=== PATIENT | male | born 1970 | race Hispanic/Latino ===

== ENCOUNTER 2018-03-20 05:50 | Emergency (ER) | payer BC, OTHER ==
[2018-03-20] MEDS ORDERED: KETOROLAC 30 MG/ML INJ ONE (06:20)
[2018-03-20] MEDS ORDERED: DIAZEPAM 10 MG/2 ML INJ SYRINGE ONE (06:21)
--- NOTE | 2018-03-20 08:30 | RAD REPORT ---
EXAM DESCRIPTION: CT - C Spine Wo Con - 03/20/2018 6:46 am CLINICAL HISTORY: fall, neck pain Trauma, neck injury. COMPARISON: No comparisons FINDINGS: The cervical vertebral body heights and disc spaces are maintained. No evidence of acute cervical spine fracture or subluxation. Prevertebral soft tissues are normal in thickness. IMPRESSION: Negative for acute cervical spine abnormality.
--- NOTE | 2018-03-20 08:33 | RAD REPORT ---
EXAM DESCRIPTION: CT - Thorax Wo Con CLINICAL HISTORY: Chest pain fall, thoracic pain COMPARISON: C Spine Wo Con dated 03/20/2018 FINDINGS: The lungs are clear. No pleural thickening or pleural effusion. No pneumothorax. No axillary, mediastinal or hilar adenopathy. No acute fractures demonstrated. No gross upper abdominal finding. All CT scans are performed using dose optimization technique as appropriate and may include automated exposure control or mA/KV adjustment according to patient size. IMPRESSION: No acute intrathoracic process identified.
--- NOTE | 2018-03-20 08:49 | RAD REPORT ---
EXAM DESCRIPTION: RAD - Shoulder Right 2 View - 03/20/2018 7:01 am CLINICAL HISTORY: shoulder pain History of fall and trauma COMPARISON: No comparisons FINDINGS: AC joint and glenohumeral joint arthritic changes. No fracture or dislocation suspected.
[2018-03-20] MEDS ORDERED: DEXAMETHASONE 10 MG/ML VIAL ONE (08:50)
--- NOTE | 2018-03-20 08:50 | RAD REPORT ---
EXAM DESCRIPTION: RAD - Shoulder Left 2 View - 03/20/2018 7:12 am CLINICAL HISTORY: PAIN Fall, trauma. COMPARISON: No comparisons FINDINGS: Mild AC joint and glenohumeral joint arthritic changes. No acute fracture or dislocation s een.
[2018-03-20] MEDS ORDERED: ONDANSETRON 4 MG/2 ML VIAL ONE (08:51)
[2018-03-20] MEDS ORDERED: MORPHINE 4 MG/ML SYR ONE (08:51)
--- NOTE | 2018-03-20 09:05 | EDPHYS ---
Physician Documentation [facility] Name: Sal Mendez Age: 47 yrs Sex: Male : 1970 Arrival Date: 03/20/2018 Time: 05:54 Bed 6 Private MD: ED Physician Antelmo Parry HPI: 03/20 06:17 This 47 yrs old Male presents to ER via Wheelchair with complaints of Shoulder jmm Pain. 06:17 Details of fall: The patient fell from seated position, out of a chair. Onset: The jmm symptoms/episode began/occurred acutely, last night. Associated injuries: The patient sustained neck injury, upper back injury. Patient complains of pain to his neck, shoulders, and back after a fall from a chair which occurred last night. The patient states having ongoing bilateral shoulder pain for 7 month. Patient states he fell backwards in a chair last evening. . Historical: - Allergies: 06:07 No Known Allergies; ao - Home Meds: 06:07 unkown BP medication [Active]; ao - PMHx: 06:07 Hypertension; Chronic pain; ao - PSHx: 06:07 None; ao - Immunization history:: Adult Immunizations up to date. - Social history:: Smoking status: Patient uses tobacco products, denies chronic smoking, but will smoke occasionally, Patient uses alcohol, on a daily basis. street drugs, marijuana. - Ebola Screening: : Patient negative for fever greater than or equal to 101.5 degrees Fahrenheit, and additional compatible Ebola Virus Disease symptoms Patient denies exposure to infectious person Patient denies travel to an Ebola-affected area in the 21 days before illness onset. ROS: 06:17 Constitutional: Negative for fever, chills, and weight loss. jmm 06:17 Cardiovascular: Negative for chest pain, palpitations, and edema, Respiratory: Negative for shortness of breath, cough, wheezing, and pleuritic chest pain, Abdomen/GI: Negative for abdominal pain, nausea, vomiting, diarrhea, and constipation. 06:17 Skin: Negative for injury, rash, and discoloration, Neuro: Negative for headache, weakness, numbness, tingling, and seizure. 06:17 Neck: Positive for pain at rest. 06:17 Back: Positive for pain with movement. 06:17 MS/extremity: Positive for pain. 06:17 All other systems are negative. Exam: 06:17 Head/Face: atraumatic. Cardiovascular: Regular rate and rhythm. No gallops, murmurs, jmm or rubs. Full/Equal distal pulses. Respiratory: Lungs have equal breath sounds bilaterally, clear to auscultation. No rales, rhonchi or wheezes noted. No increased work of breathing, no retractions or nasal flaring. Abdomen/GI: Soft, non-tender, with normal bowel sounds. No distension or tympany. No guarding or rebound. No evidence of tenderness throughout. 06:17 Constitutional: The patient appears alert, awake, uncomfortable. 06:17 Back: diffuse paraspinal tenderness noted to the cervical spine and thoracic spine. 06:17 Musculoskeletal/extremity: painful rom noted to the shoulders bilaterally, full radial pulses bilaterally, pain on abduction, full computer numerical control operator strength, NVI. 06:17 Skin: Appearance: Color: normal in color. 06:17 Neuro: Orientation: is normal, Mentation: is normal, Memory: is normal. 06:17 Psych: Behavior/mood is cooperative, anxious. Vital Signs: 06:05 BP 130 / 90; Pulse 113; Resp 22; Temp 97.6(O); Pulse Ox 99% on R/A; Weight 103.42 kg ao (R); Height 5 ft. 7 in. (170.18 cm) (R); Pain 10/10; 07:39 BP 143 / 89; Pulse 104; Resp 20; Pulse Ox 97% ; sv 06:05 Body Mass Index 35.71 (103.42 kg, 170.18 cm) ao MDM: 06:07 Patient medically screened. [facility] 06:17 Differential diagnosis: fracture, sprain, strain. Data reviewed: vital signs, nurses [facility] notes. 08:53 Counseling: I had a detailed discussion with the patient and/or guardian regarding: the [facility] historical points, exam findings, and any diagnostic results supporting the discharge/admit diagnosis, radiology results, the need for outpatient follow up, to return to the emergency department if symptoms worsen or persist or if there are any questions or concerns that arise at home. Response to treatment: the patient's symptoms have markedly improved after treatment. ED course: Symptoms appear radicular but could be due to an exacerbation chronic shoulder pain. Ct imagaing is negative for fracture of the spine. The patient does not have chest pain. I do not suspect dissection. Patient is NVI in both upper extremities. . 03/20 06:15 Order name: CT C Spine; Complete Time: 08:34 [facility] 03/20 06:15 Order name: CT Chest Wo Con; Complete Time: 08:34 jmm 03/20 06:46 Order name: Shoulder Right (2 View) XRAY; Complete Time: 08:52 [facility] 03/20 06:49 Order name: Shoulder Left 2 View; Complete Time: 08:52 EDMS 03/20 06:15 Order name: Saline Lock; Complete Time: 06:27 jm 03/20 08:34 Order name: Sling; Complete Time: 09:11 jm Administered Medications: 06:28 Drug: Ketorolac 30 mg Route: IVP; Site: right antecubital; ao 07:00 Follow up: Response: No adverse reaction sv 06:29 Drug: Valium 5 mg Route: IVP; Site: right antecubital; ao 07:00 Follow up: Response: No adverse reaction sv 08:53 Drug: Zofran 4 mg Route: IVP; Site: left antecubital; sv 09:11 Follow up: Response: No adverse reaction sv 08:57 Drug: Decadron - Dexamethasone 10 mg Route: IVP; Site: left antecubital; sv 09:11 Follow up: Response: No adverse reaction sv 08:58 Drug: morphine 4 mg Route: IVP; Site: left antecubital; sv 09:11 Follow up: Response: No adverse reaction sv 09:04 CANCELLED (Duplicate Order): Dexamethasone 10 mg IM once; IV please sv Disposition: 15:38 Co-signature as Attending Physician, Antelmo Parry MD I agree with the assessment and armand plan of care. Disposition: 03/20/18 09:04 Discharged to Home. Impression: Pain in shoulder, Sprain of ligaments of cervical spine, Sprain of ligaments of thoracic spine. - Condition is Stable. - Discharge Instructions: Shoulder Pain, Thoracic Strain, Cervical Sprain. - Prescriptions for Valium 5 mg Oral Tablet - take 1 tablet by ORAL route every 8 hours As needed; 20 tablet. - Work release form, Medication Reconciliation Form, Thank You Letter, Antibiotic Education, Prescription Opioid Use form. - Follow up: Ney Henry MD; When: 1 - 2 days; Reason: Continuance of care. Signatures: Dispatcher [employer] Conchita Isidro, RN RN Antelmo Lux MD MD cha Mickail, Joel, PA PA jmm Ortiz, Alex, DENI RN ao Corrections: (The following items were deleted from the chart) 06:49 06:27 Shoulder Left W Compar+RAD.RAD.BRZ ordered. [facility] 09:04 08:45 Dexamethasone 10 mg IM once; IV please ordered. [facility] 09:11 09:04 03/20/2018 09:04 Discharged to Home. Impression: Pain in shoulder; Sprain of sv ligaments of cervical spine; Sprain of ligaments of thoracic spine. Condition is Stable. Forms are Medication Reconciliation Form, Thank You Letter, Antibiotic Education, Prescription Opioid Use. Follow up: Ney Henry; When: 1 - 2 days; Reason: Continuance of care. ryan
--- NOTE | 2018-03-20 09:05 | ER ---
Nurse's Notes [facility] Name: Sal Mendez Age: 47 yrs Sex: Male : 1970 Arrival Date: 03/20/2018 Time: 05:54 Bed 6 Private MD: Diagnosis: Pain in shoulder;Sprain of ligaments of cervical spine;Sprain of ligaments of thoracic spine Presentation: 03/20 06:02 Presenting complaint: Patient states: Shoulder pain for the past 7 months. Last night ao was trying to kill a becerra and turn and hit his back in a furniture. Patient's pain has now increased to 10/10 and also complaining of back pain. Transition of care: patient was not received from another setting of care. Onset of symptoms is unknown. Risk Assessment: Do you want to hurt yourself or someone else? Patient reports no desire to harm self or others. Initial Sepsis Screen: Does the patient meet any 2 criteria? HR > 90 bpm. No. Patient's initial sepsis screen is negative. Does the patient have a suspected source of infection? No. Patient's initial sepsis screen is negative. Care prior to arrival: Medication(s) given: Motrin, 400 mg. 06:02 Method Of Arrival: Wheelchair ao 06:02 Acuity: COLTON 3 ao Historical: - Allergies: 06:07 No Known Allergies; ao - Home Meds: 06:07 unkown BP medication [Active]; ao - PMHx: 06:07 Hypertension; Chronic pain; ao - PSHx: 06:07 None; ao - Immunization history:: Adult Immunizations up to date. - Social history:: Smoking status: Patient uses tobacco products, denies chronic smoking, but will smoke occasionally, Patient uses alcohol, on a daily basis. street drugs, marijuana. - Ebola Screening: : Patient negative for fever greater than or equal to 101.5 degrees Fahrenheit, and additional compatible Ebola Virus Disease symptoms Patient denies exposure to infectious person Patient denies travel to an Ebola-affected area in the 21 days before illness onset. Screenin:09 Abuse screen: Denies threats or abuse. Denies injuries from another. Nutritional ao screening: No deficits noted. Tuberculosis screening: No symptoms or risk factors identified. Fall Risk None identified. Assessment: 06:07 General: Appears in no apparent distress. uncomfortable, Behavior is agitated, anxious. ao Pain: Complains of pain in back. Neuro: Level of Consciousness is awake, alert, obeys commands, Oriented to person, place, time, situation, Appropriate for age Moves all extremities. Speech is normal. Cardiovascular: Capillary refill < 3 seconds Patient's skin is warm and dry. Respiratory: Airway is patent Respiratory effort is even, unlabored, Respiratory pattern is regular, symmetrical. GI: Abdomen is non-distended. : No signs and/or symptoms were reported regarding the genitourinary system. EENT: No signs and/or symptoms were reported regarding the EENT system. Derm: No signs and/or symptoms reported regarding the dermatologic system. Musculoskeletal: Circulation, motion, and sensation intact. Range of motion: limited in all extremities, Reports pain in back since last night. Pain is 10 out of 10 on a pain scale. 09:05 Reassessment: Patient appears in no apparent distress at this time. No changes from sv previously documented assessment. Patient and/or family updated on plan of care and expected duration. Pain level reassessed. Patient is alert, oriented x 3, equal unlabored respirations, skin warm/dry/pink. Vital Signs: 06:05 BP 130 / 90; Pulse 113; Resp 22; Temp 97.6(O); Pulse Ox 99% on R/A; Weight 103.42 kg ao (R); Height 5 ft. 7 in. (170.18 cm) (R); Pain 10/10; 07:39 BP 143 / 89; Pulse 104; Resp 20; Pulse Ox 97% ; sv 06:05 Body Mass Index 35.71 (103.42 kg, 170.18 cm) ao ED Course: 05:54 Patient arrived in ED. es 06:02 Nemesio Flowers, RN is Primary Nurse. ao 06:05 Triage completed. ao 06:06 Maxime Hayes PA is PHCP. jmm 06:06 Antelmo Parry MD is Attending Physician. jmm 06:06 Arm band placed on right wrist. Patient placed in an exam room, on a stretcher, on ao pulse oximetry. 06:09 Patient has correct armband on for positive identification. Pulse ox on. NIBP on. ao 06:26 Inserted saline lock: 20 gauge in right antecubital area, using aseptic technique. ks6 06:46 CT C Spine In Process Unspecified. EDMS 06:46 CT Chest Wo Con In Process Unspecified. EDMS 06:48 CT completed. Patient tolerated procedure well. Patient moved to CT via stretcher. Patient moved to radiology. 06:58 X-ray completed. Patient tolerated procedure well. jb2 06:58 Patient moved back from radiology. jb2 06:59 Shoulder Right (2 View) XRAY In Process Unspecified. EDMS 06:59 Shoulder Left 2 View In Process Unspecified. EDMS 07:09 Report given to DENI Arango. ao 07:39 Conchita Todd RN is Primary Nurse. sv 09:03 Ney Henry MD is Referral Physician. jmm 09:05 No provider procedures requiring assistance completed. IV discontinued, intact, sv bleeding controlled, No redness/swelling at site. Pressure dressing applied. Sling applied to left arm. Administered Medications: 06:28 Drug: Ketorolac 30 mg Route: IVP; Site: right antecubital; ao 07:00 Follow up: Response: No adverse reaction sv 06:29 Drug: Valium 5 mg Route: IVP; Site: right antecubital; ao 07:00 Follow up: Response: No adverse reaction sv 08:53 Drug: Zofran 4 mg Route: IVP; Site: left antecubital; sv 09:11 Follow up: Response: No adverse reaction sv 08:57 Drug: Decadron - Dexamethasone 10 mg Route: IVP; Site: left antecubital; sv 09:11 Follow up: Response: No adverse reaction sv 08:58 Drug: morphine 4 mg Route: IVP; Site: left antecubital; sv 09:11 Follow up: Response: No adverse reaction sv 09:04 CANCELLED (Duplicate Order): Dexamethasone 10 mg IM once; IV please sv Outcome: 09:04 Discharge ordered by . jmm 09:11 Discharged to home ambulatory, with family. sv 09:11 Condition: stable 09:11 Discharge instructions given to patient, family, Instructed on discharge instructions, follow up and referral plans. medication usage, arm sling Demonstrated understanding of instructions, follow-up care, medications, arm sling Prescriptions given X 1. 09:11 Patient left the ED. sv Signatures: Dispatcher [employer] EDConchita Salvador RN RN sv Mickail, Joel, PA PA jmm Salyer Lupis es Buechter, Woo jb2 Isaiah Myers Alex, DENI RN Hugo Soto ks6
== END 2018-03-20 09:11 | disposition home or self-care (01) ==
LOC: ER 05:50
DX: S13.4XXA Sprain of ligaments of cervical spine, initial encounter (principal); S23.3XXA Sprain of ligaments of thoracic spine, initial encounter; W07.XXXA Fall from chair, initial encounter; Y93.89 Activity, other specified; Y92.009 Unspecified place in unspecified non-institutional (private) residence as the place of occurrence of the external cause; Z72.0 Tobacco use; I10 Essential (primary) hypertension
CPT/HCPCS: 71250; 72125; 99284; J1100; J2405; J3360

== ENCOUNTER 2018-09-30 11:27 | Emergency (ER) | payer BC ==
[2018-09-30] MEDS ORDERED: ONDANSETRON 4 MG/2 ML VIAL ONE (12:51)
[2018-09-30] MEDS ORDERED: NA CHLORIDE 0.9% 1,000 ML ONE (12:51)
[2018-09-30] MEDS ORDERED: MORPHINE 4 MG/ML SYR ONE ×2 (12:51→15:40)
[2018-09-30] MEDS ORDERED: AMOX/K CLAV 875 MG TAB ONE (12:51)
[2018-09-30] MEDS ORDERED: CEFTRIAXONE/SWI 1gm 1 GM/10 ML SYR ONE (12:52)
[2018-09-30 12:59] LABS: Absolute Lymphocytes (CBC) 1.1 K/uL (0.7-4.9); Absolute Monocytes 0.8 K/uL (0.1-1.3); Absolute Neutrophil 7.8 K/uL (1.8-8.0); Basophils % 0.3 % (0-1.3); Eosinophils % 0.5 % (0-4.4); Hematocrit 40.1 % (39.6-49.0); Lymphocytes % 11.7 % (15.3-44.8); MPV 7.7 fL (7.6-11.3); Monocytes % 8.5 % (3.3-12.3); RBC Red Blood Cell Count 4.24 M/uL (4.33-5.43)
[2018-09-30 13:17] LABS: ALT/SGPT 40 U/L (12-78); AST/SGOT 32 U/L (15-37); Alkaline Phosphatase 79 U/L (45-117); BUN Blood Urea Nitrogen 14 mg/dL (7-18); Bicarbonate 23 mmol/L (21-32); Bilirubin Total 0.4 mg/dL (0.2-1.0); Glucose Level 89 mg/dL (74-106); Potassium 3.8 mmol/L (3.5-5.1); Protein, Total 7.5 g/dL (6.4-8.2); Sodium Level 139 mmol/L (136-145)
--- NOTE | 2018-09-30 14:14 | RAD REPORT ---
EXAM DESCRIPTION: CT - Soft Tissue Neck W/Contr - 09/30/2018 1:52 pm CLINICAL HISTORY: Right-sided facial pain and swelling TECHNIQUE: During dynamic enhancement using 100 milliliters nonionic IV contrast, axial 5 millimeter thick images of the neck were obtained. All CT scans are performed using dose optimization technique as appropriate and may include automated exposure control or mA/KV adjustment according to patient size. FINDINGS: Intracranial portion the examination is unremarkable. Globes and orbital contents are norm al. Mastoid air cells are clear with no acute paranasal sinus finding. Left nasal septum deviation no dangelo. No pharyngeal mucosal mass or asymmetry seen. Parapharyngeal fat is normal. No tonsillar or tongue ba se abnormality seen. No acute vascular finding seen. Congestion and edema seen in the soft tissues both superficial and deep to the platysma which is thic kened and edematous as well. There is mild congestion or edema in the right-side masses or muscle and to a lesser degree in the parotid gland. Patient has multiple reactive lymph nodes in the right neck soft tissues. No abscess identified in the soft tissues. No erosive or destructive dental or periodo ntal finding. IMPRESSION: Infectious/ inflammatory edema changes in the soft tissues on the right side of the face . No abscess, air or foreign body. Etiology is uncertain. No dental acute finding seen.
--- NOTE | 2018-09-30 14:47 | EDPHYS ---
Physician Documentation [facility] Name: Sal Mendez Age: 48 yrs Sex: Male : 1970 Arrival Date: 09/30/2018 Time: 11:30 Bed 24 Private MD: ED Physician Antelmo Parry HPI: 09/30 12:13 This 48 yrs old Male presents to ER via Ambulatory with complaints of Jaw armand Pain, Facial Swelling. 12:13 The patient presents with pain, swelling. The problem is located in the right cheek, armand right ear and right jaw. Onset: The symptoms/episode began/occurred 2 day(s) ago. Duration: The symptoms are continuous, and are steadily getting worse. Modifying factors: The symptoms are alleviated by nothing, the symptoms are aggravated by chewing, talking. Associated signs and symptoms: The patient has no apparent associated signs or symptoms. Severity of symptoms: At their worst the symptoms were mild, moderate, in the emergency department the symptoms are unchanged. The patient has not experienced similar symptoms in the past. Historical: - Allergies: 11:44 No Known Allergies; ph - PMHx: 11:44 Chronic pain; Hypertension; ph - PSHx: 11:44 None; ph - Immunization history:: Adult Immunizations unknown. - Social history:: Smoking status: Patient/guardian denies using tobacco. - Ebola Screening: : No symptoms or risks identified at this time. - Family history:: not pertinent. ROS: 12:13 Constitutional: Negative for fever, chills, and weight loss, Eyes: Negative for injury, armand pain, redness, and discharge, Neck: Negative for injury, pain, and swelling, Cardiovascular: Negative for chest pain, palpitations, and edema, Respiratory: Negative for shortness of breath, cough, wheezing, and pleuritic chest pain, Abdomen/GI: Negative for abdominal pain, nausea, vomiting, diarrhea, and constipation, Back: Negative for injury and pain, : Negative for injury, bleeding, discharge, and swelling, MS/Extremity: Negative for injury and deformity, Skin: Negative for injury, rash, and discoloration, Neuro: Negative for headache, weakness, numbness, tingling, and seizure, Psych: Negative for depression, anxiety, suicide ideation, homicidal ideation, and hallucinations, Allergy/Immunology: Negative for hives, rash, and allergies, Endocrine: Negative for neck swelling, polydipsia, polyuria, polyphagia, and marked weight changes, Hematologic/Lymphatic: Negative for swollen nodes, abnormal bleeding, and unusual bruising. 12:13 ENT: Positive for of the right ear, right jaw, right cheondoism, right zygomatic area, right cheek and right mandible, sore throat. Exam: 12:13 Constitutional: This is a well developed, well nourished patient who is awake, alert, armand and in no acute distress. Eyes: Pupils equal round and reactive to light, extra-ocular motions intact. Lids and lashes normal. Conjunctiva and sclera are non-icteric and not injected. Cornea within normal limits. Periorbital areas with no swelling, redness, or edema. ENT: Nares patent. No nasal discharge, no septal abnormalities noted. Tympanic membranes are normal and external auditory canals are clear. Oropharynx with no redness, swelling, or masses, exudates, or evidence of obstruction, uvula midline. Mucous membranes moist. Neck: Trachea midline, no thyromegaly or masses palpated, and no cervical lymphadenopathy. Supple, full range of motion without nuchal rigidity, or vertebral point tenderness. No Meningismus. Chest/axilla: Normal chest wall appearance and motion. Nontender with no deformity. No lesions are appreciated. Cardiovascular: Regular rate and rhythm with a normal S1 and S2. No gallops, murmurs, or rubs. Normal PMI, no JVD. No pulse deficits. Respiratory: Lungs have equal breath sounds bilaterally, clear to auscultation and percussion. No rales, rhonchi or wheezes noted. No increased work of breathing, no retractions or nasal flaring. Abdomen/GI: Soft, non-tender, with normal bowel sounds. No distension or tympany. No guarding or rebound. No evidence of tenderness throughout. Back: No spinal tenderness. No costovertebral tenderness. Full range of motion. Skin: Warm, dry with normal turgor. Normal color with no rashes, no lesions, and no evidence of cellulitis. MS/ Extremity: Pulses equal, no cyanosis. Neurovascular intact. Full, normal range of motion. Neuro: Awake and alert, GCS 15, oriented to person, place, time, and situation. Cranial nerves II-XII grossly intact. Motor strength 5/5 in all extremities. Sensory grossly intact. Cerebellar exam normal. Normal gait. Psych: Awake, alert, with orientation to person, place and time. Behavior, mood, and affect are within normal limits. 12:13 Head/face: Noted is swelling, tenderness, that is moderate, of the right ear, right jaw, right cheondoism, right zygomatic area, right cheek and right mandible. Vital Signs: 11:43 BP 142 / 96; Pulse 88; Resp 22; Temp 97.8(O); Pulse Ox 98% on R/A; Weight 102.06 kg; ph Height 5 ft. 7 in. (170.18 cm); Pain 8/10; 13:11 BP 156 / 105; Pulse 81; Resp 18; Pulse Ox 100% on R/A; aj1 14:28 BP 154 / 93; Pulse 79; Resp 18; Pulse Ox 99% on R/A; aj1 11:43 Body Mass Index 35.24 (102.06 kg, 170.18 cm) ph MDM: 11:38 Patient medically screened. [facility] 12:13 Data reviewed: vital signs, nurses notes, lab test result(s), radiologic studies, CT armand scan. 09/30 12:12 Order name: CBC with Diff; Complete Time: 13:17 [facility] 09/30 12:12 Order name: Comprehensive Metabolic Panel; Complete Time: 13:44 [facility] 09/30 12:12 Order name: CT Soft Tissue Neck W/contr; Complete Time: 14:42 [facility] Administered Medications: 12:47 Drug: morphine 4 mg Route: IVP; Site: right antecubital; aj1 13:45 Follow up: Response: No adverse reaction aj1 12:47 Drug: Zofran 4 mg Route: IVP; Site: right antecubital; aj1 13:45 Follow up: Response: No adverse reaction aj1 12:47 Drug: Augmentin 875 mg Route: PO; aj1 13:45 Follow up: Response: No adverse reaction aj1 12:47 Drug: Rocephin 1 grams Route: IV; Rate: per protocol; Site: right antecubital; aj1 13:52 Follow up: IV Status: Completed infusion; IV Intake: 10ml aj1 12:48 Drug: NS 0.9% 1000 ml Route: IV; Rate: 1 bolus; Site: right antecubital; aj1 13:45 Follow up: IV Status: Completed infusion; IV Intake: 1000ml aj1 15:28 Drug: Clindamycin 900 mg Route: IVPB; Infused Over: 30 mins; Site: right antecubital; mg2 16:15 Follow up: IV Status: Completed infusion; IV Intake: 100ml aj1 15:32 Drug: morphine 4 mg Route: IVP; Site: right antecubital; mg2 16:15 Follow up: Response: No adverse reaction aj1 Disposition: 09/30/18 14:46 Discharged to Home. Impression: Disturbances of salivary secretion, Disease of salivary gland, unspecified, Sialolithiasis, Sialoadenitis, unspecified. - Condition is Stable. - Discharge Instructions: Parotitis, Salivary Gland Infection, Parotitis, [id number], Salivary Stone. - Prescriptions for Tylenol- Codeine #3 300-30 mg Oral Tablet - take 2 tablet by ORAL route every 6 hours As needed; 30 tablet. Clindamycin HCl 300 mg Oral Capsule - take 1 capsule by ORAL route every 6 hours for 10 days; 40 capsule. - Medication Reconciliation Form, Thank You Letter, Antibiotic Education, Prescription Opioid Use form. - Follow up: Private Physician; When: 2 - 3 days; Reason: Recheck today's complaints, Continuance of care, Re-evaluation by your physician. Follow up: Conchita Mccartney; When: 2 - 3 days; Reason: Recheck today's complaints, Re-evaluation by your physician. - Problem is new. - Symptoms have improved. Signatures: Dispatcher [employer] EDLauren Chowdary RN RN aj1 Antelmo Parry MD MD cha Hall, Patricia, RN RN Eugene Romero RN RN mg2 Corrections: (The following items were deleted from the chart) 16:16 14:46 09/30/2018 14:46 Discharged to Home. Impression: Disturbances of salivary aj1 secretion; Disease of salivary gland, unspecified; Sialolithiasis; Sialoadenitis, unspecified. Condition is Stable. Discharge Instructions: Parotitis, Salivary Gland Infection, Parotitis, [id number], Salivary Stone. Prescriptions for Augmentin 875-125 mg Oral Tablet - take 1 tablet by ORAL route every 12 hours for 10 days; 20 tablet, Tylenol-Codeine #3 300-30 mg Oral Tablet - take 2 tablet by ORAL route every 6 hours As needed; 30 tablet. and Forms are Medication Reconciliation Form, Thank You Letter, Antibiotic Education, Prescription Opioid Use. Follow up: Private Physician; When: 2 - 3 days; Reason: Recheck today's complaints, Continuance of care, Re-evaluation by your physician. Follow up: Conchita Mccartney; When: 2 - 3 days; Reason: Recheck today's complaints, Re-evaluation by your physician. Problem is new. Symptoms have improved. armand
--- NOTE | 2018-09-30 14:47 | ER ---
Nurse's Notes [facility] Name: Sal Mendez Age: 48 yrs Sex: Male : 1970 Arrival Date: 09/30/2018 Time: 11:30 Bed 24 Private MD: Diagnosis: Disturbances of salivary secretion;Disease of salivary gland, unspecified;Sialolithiasis;Sialoadenitis, unspecified Presentation: 09/30 11:42 Presenting complaint: Patient states: R sided jaw swelling that began today, denies ph dental pain or recent infection, also denies injury, reports pain to area and nausea, denies fever, V/D. Transition of care: patient was not received from another setting of care. Onset of symptoms was September 30, 2018. Risk Assessment: Do you want to hurt yourself or someone else? Patient reports no desire to harm self or others. Initial Sepsis Screen: Does the patient meet any 2 criteria? No. Patient's initial sepsis screen is negative. Does the patient have a suspected source of infection? No. Patient's initial sepsis screen is negative. Care prior to arrival: None. 11:42 Method Of Arrival: Ambulatory ph 11:42 Acuity: COLTON 3 ph Historical: - Allergies: 11:44 No Known Allergies; ph - PMHx: 11:44 Chronic pain; Hypertension; ph - PSHx: 11:44 None; ph - Immunization history:: Adult Immunizations unknown. - Social history:: Smoking status: Patient/guardian denies using tobacco. - Ebola Screening: : No symptoms or risks identified at this time. - Family history:: not pertinent. Screenin:05 Abuse screen: Denies threats or abuse. Denies injuries from another. Nutritional aj1 screening: No deficits noted. Tuberculosis screening: No symptoms or risk factors identified. 16:16 Fall Risk None identified. aj1 Assessment: 12:05 General: Appears in no apparent distress. uncomfortable, Behavior is calm, cooperative, aj1 appropriate for age. Pain: Complains of pain in right jaw, right mandible and submental area. Neuro: Level of Consciousness is awake, alert, obeys commands, Oriented to person, place, time, situation. Cardiovascular: Patient's skin is warm and dry. Respiratory: Airway is patent Respiratory effort is even, unlabored, Respiratory pattern is regular, symmetrical. Respiratory: Breath sounds are clear bilaterally. Denies shortness of breath. GI: No signs and/or symptoms were reported involving the gastrointestinal system. : No signs and/or symptoms were reported regarding the genitourinary system. EENT: Reports nasal congestion. Derm: No signs and/or symptoms reported regarding the dermatologic system. Skin is pink, warm \T\ dry. normal. Musculoskeletal: No signs and/or symptoms reported regarding the musculoskeletal system. Circulation, motion, and sensation intact. 13:11 Reassessment: Patient appears in no apparent distress at this time. No changes from aj1 previously documented assessment. Patient and/or family updated on plan of care and expected duration. Pain level reassessed. Patient is alert, oriented x 3, equal unlabored respirations, skin warm/dry/pink. 14:27 Reassessment: Patient appears in no apparent distress at this time. No changes from aj1 previously documented assessment. Patient and/or family updated on plan of care and expected duration. Pain level reassessed. Patient is alert, oriented x 3, equal unlabored respirations, skin warm/dry/pink. 15:30 Reassessment: Patient appears in no apparent distress at this time. No changes from aj1 previously documented assessment. Patient and/or family updated on plan of care and expected duration. Pain level reassessed. Patient is alert, oriented x 3, equal unlabored respirations, skin warm/dry/pink. Vital Signs: 11:43 BP 142 / 96; Pulse 88; Resp 22; Temp 97.8(O); Pulse Ox 98% on R/A; Weight 102.06 kg; ph Height 5 ft. 7 in. (170.18 cm); Pain 8/10; 13:11 BP 156 / 105; Pulse 81; Resp 18; Pulse Ox 100% on R/A; aj1 14:28 BP 154 / 93; Pulse 79; Resp 18; Pulse Ox 99% on R/A; aj1 11:43 Body Mass Index 35.24 (102.06 kg, 170.18 cm) ph ED Course: 11:30 Patient arrived in ED. rg4 11:38 Antelmo Parry MD is Attending Physician. armand 11:43 Triage completed. ph 11:45 Arm band placed on Patient placed in an exam room. ph 12:04 Lauren Fitzpatrick RN is Primary Nurse. aj1 12:05 Patient has correct armband on for positive identification. Bed in low position. Call aj1 light in reach. Side rails up X 1. 12:05 No provider procedures requiring assistance completed. aj1 12:26 Radiology exam delayed due to lab results not completed at this time. (BUN/Creatinine). vr 12:40 Initial lab(s) drawn, by me, sent to lab. Inserted saline lock: 18 gauge in right aj1 antecubital area, using aseptic technique. Blood collected. 13:03 Radiology exam delayed due to lab results not completed at this time. (BUN/Creatinine). vr 13:51 CT Soft Tissue Neck W/contr In Process Unspecified. EDMS 14:46 Conchita Mccartney MD is Referral Physician. armand 16:05 IV discontinued, intact, bleeding controlled, No redness/swelling at site. Pressure mg2 dressing applied. Administered Medications: 12:47 Drug: morphine 4 mg Route: IVP; Site: right antecubital; aj1 13:45 Follow up: Response: No adverse reaction aj1 12:47 Drug: Zofran 4 mg Route: IVP; Site: right antecubital; aj1 13:45 Follow up: Response: No adverse reaction aj1 12:47 Drug: Augmentin 875 mg Route: PO; aj1 13:45 Follow up: Response: No adverse reaction aj1 12:47 Drug: Rocephin 1 grams Route: IV; Rate: per protocol; Site: right antecubital; aj1 13:52 Follow up: IV Status: Completed infusion; IV Intake: 10ml aj1 12:48 Drug: NS 0.9% 1000 ml Route: IV; Rate: 1 bolus; Site: right antecubital; aj1 13:45 Follow up: IV Status: Completed infusion; IV Intake: 1000ml aj1 15:28 Drug: Clindamycin 900 mg Route: IVPB; Infused Over: 30 mins; Site: right antecubital; mg2 16:15 Follow up: IV Status: Completed infusion; IV Intake: 100ml aj1 15:32 Drug: morphine 4 mg Route: IVP; Site: right antecubital; mg2 16:15 Follow up: Response: No adverse reaction aj1 Intake: 13:45 IV: 1000ml; Total: 1000ml. aj1 13:52 IV: 10ml; Total: 1010ml. aj1 16:15 IV: 100ml; Total: 1110ml. aj1 Outcome: 14:46 Discharge ordered by . armand 16:05 Discharged to home ambulatory, with family. mg2 16:05 Condition: stable 16:05 Discharge instructions given to patient, family, Instructed on discharge instructions, follow up and referral plans. medication usage, Demonstrated understanding of instructions, follow-up care, medications, Prescriptions given X 2. 16:16 Patient left the ED. aj1 Signatures: Dispatcher [employer] EDLauren Chowdary RN RN aj1 Antelmo Parry MD MD cha Davis, Victoria vr Hall, Patricia, RN RN Klaus, Nay rg4 Eugene Romero RN RN mg2
[2018-09-30] MEDS ORDERED: CLINDAMYCIN 900MG/D5W 900 MG/50 ML IVPB IV ONE (15:34)
== END 2018-09-30 16:16 | disposition home or self-care (01) ==
LOC: ER 11:27
DX: K11.5 Sialolithiasis (principal); K11.20 Sialoadenitis, unspecified; I10 Essential (primary) hypertension
CPT/HCPCS: 36415; 70491; 80053; 85025; 96365; 96367; 96375; 99284; J0696; J2405; J7030; Q9967

== ENCOUNTER 2018-11-10 15:05 | Emergency (ER) | payer BC ==
--- NOTE | 2018-11-10 15:46 | ER ---
Nurse's Notes [facility] Name: Sal Mendez Age: 48 yrs Sex: Male : 1970 Arrival Date: 11/10/2018 Time: 15:08 Bed Waiting Private MD: Diagnosis: Presentation: 11/10 15:11 Presenting complaint: Patient states: "I have a sore on my lip and I don't know what it aa5 is". Bruising and swelling noted to right lower lip, pt denies known injury. Care prior to arrival: None. 15:11 Acuity: COLTON 5 aa5 15:11 Method Of Arrival: Ambulatory aa5 Historical: - Allergies: 15:12 No Known Allergies; aa5 - PMHx: 15:12 Chronic pain; Hypertension; aa5 - PSHx: 15:12 None; aa5 - Immunization history:: Flu vaccine is not up to date. - Social history:: Smoking status: Patient uses tobacco products, denies chronic smoking, but will smoke occasionally. - Ebola Screening: : No symptoms or risks identified at this time. Assessment: 15:43 Reassessment: called pt on phone, states "I have very low patience and I didn't want to iw wait anymore, I'll come back if my lip gets worse". Vital Signs: 15:12 BP 127 / 78; Pulse 96; Resp 18 S; Temp 97.8(TE); Pulse Ox 97% on R/A; Weight 102.06 kg aa5 (R); Height 5 ft. 7 in. (170.18 cm) (R); Pain 6/10; 15:12 Body Mass Index 35.24 (102.06 kg, 170.18 cm) aa5 ED Course: 15:08 Patient arrived in ED. mr 15:12 Triage completed. aa5 15:12 Arm band placed on. aa5 15:33 Patient's name was called from ER lobby. No response. aa5 15:35 Mary Hahn, RN is Primary Nurse. aj 15:40 Patient's name was called from ER lobby. No response. aa5 Administered Medications: No medications were administered Outcome: 15:44 Eloped from waiting room, before seeing physician Time discovered patient gone: iw November 10, 2018 at 15:44 15:45 Patient left the ED. iw Signatures: Mary Hahn, RN RN brooklynn Jo, Alexandra mr Rosario Weaver, RN RN Vivien Solorio, RN RN aa5
== END 2018-11-10 15:45 | disposition left against medical advice (07) ==
LOC: ER 15:05
DX: Z53.21 Procedure and treatment not carried out due to patient leaving prior to being seen by health care provider (principal)
CPT/HCPCS: 99281